=== PATIENT | male | born 1935 | race African-American/Black ===

== ENCOUNTER 2022-09-14 13:25 | Inpatient (IN) | payer OTHER ==
[~2022-09-14] VITALS: Ht 182.9 cm; Wt 75.4 kg
[2022-09-14] VITALS (22 sets, daily range): BP systolic 90–123; BP diastolic 52–84
[2022-09-14 14:49] LABS: BASOPHILS % 0.5 % (0.0-2.0); EOSINOPHILS % 0.4 % (0.0-5.0); HEMATOCRIT. 47.7 % (42.0-52.0); HEMOGLOBIN. 15.8 g/dL (14.0-18.0); LYMPHOCYTES % 14.8 % (20.0-50.0); MEAN CORPUSCULAR HEMOGLOBIN 31.8 pg (28.0-32.0); MEAN CORPUSCULAR VOLUME 95.7 fL (80.0-94.0); MEAN PLATELET VOLUME 8.6 fl (7.4-10.4); MONOCYTES % 5.6 % (2.0-8.0); NEUTROPHILS % 78.7 % (40.0-76.0); PLATELET 282 x1000/uL (130-400); RED BLOOD CELL COUNT 4.98 mill/uL (4.7-6.1); RED CELL DISTRIBUTION WIDTH 15.1 % (11.6-14.6)
[2022-09-14 14:51] LABS: CLARITY URINE CLEAR (CLEAR); COLOR URINE YELLOW (YELLOW); KETONES URINE 2+ (NEGATIVE); LEUKOCYTE ESTERASE URINE 2+ (NEGATIVE); NITRITE URINE POSITIVE (NEGATIVE); OCCULT BLOOD URINE TRACE (NEGATIVE); PH URINE 5.5 (4.5-8.0); PROTEIN URINE TRACE (NEGATIVE); SPECIFIC GRAVITY URINE 1.016 (1.005-1.030); UROBILINOGEN URINE 0.2 E.U./dL (0.2-1.0)
[2022-09-14 15:03] LABS: CHLORIDE 105 mEq/L (98-107)
[2022-09-14] MEDS ORDERED: CEFTRIAXONE 1 G PREMIX 50 ML IV ONE (16:15)
[2022-09-14] MEDS ORDERED: MORPHINE SULFATE 2 MG/ML CPJ (NOT FOR IM USE) IV PRN (18:00)
[2022-09-14] MEDS ORDERED: NICARDIPINE 100 MG in SODIUM CHLORIDE 0.9% 60 ML IV PRN (18:00)
[2022-09-14] MEDS ORDERED: IPRATROPIUM/ALBUTEROL 0.5-3(2.5)MG/3ML NEB NEB SCH (18:30)
[2022-09-14] MEDS ORDERED: ACETAMINOPHEN 650MG SUPP PR PRN ×2 (18:30)
[2022-09-14] MEDS ORDERED: ONDANSETRON HCL 4MG/2ML INJ IV PRN (18:30)
[2022-09-14] MEDS: DEXT 5%/LACTATED RINGERS 1,000 ML IV SCH (18:40)
[2022-09-14] MEDS: FUROSEMIDE 40MG/4ML VIAL IV SCH (18:55)
[2022-09-14] MEDS: PANTOPRAZOLE SODIUM 40 MG/VIAL IV SCH (18:55)
[2022-09-14] MEDS ORDERED: VANCOMYCIN 1G PREMIX 200 ML IV SCH (20:00)
[2022-09-14] MEDS: FOLIC ACID 1MG TABLET PO SCH (20:45)
[2022-09-14] MEDS ORDERED: LEVETIRACETAM 500MG PREMIX 100 ML IV SCH (21:00)
[2022-09-14 22:01] LABS: VITAMIN B12 SERUM >2000 pg/mL pg/mL (211-911)
[2022-09-14] MEDS: THIAMINE HCL 500 MG in SODIUM CHLORIDE 0.9% 95 ML IV SCH (22:08)
[2022-09-14] MEDS: PIPERACILLIN/TAZOBACTAM 3.375 G in DEXTROSE 5% WATER 50 ML IV SCH (22:09)
[2022-09-14 22:50] LABS: CREATINE KINASE MB FRACTION 2.3 ng/mL (0.5-3.6)
[2022-09-15] VITALS (76 sets, daily range): BP systolic 88–131; BP diastolic 36–82
[2022-09-15] MEDS ORDERED: VANCOMYCIN 750MG PREMIX 150 ML IV SCH (04:00)
[2022-09-15] MEDS: PIPERACILLIN/TAZOBACTAM 3.375 G in DEXTROSE 5% WATER 50 ML IV SCH ×2 (05:27→13:43)
[2022-09-15 06:54] LABS: BASOPHILS % 0.4 % (0.0-2.0); EOSINOPHILS % 0.8 % (0.0-5.0); HEMATOCRIT. 39.2 % (42.0-52.0); HEMOGLOBIN. 13.4 g/dL (14.0-18.0); LYMPHOCYTES % 13.1 % (20.0-50.0); MEAN CORPUSCULAR HEMOGLOBIN 31.8 pg (28.0-32.0); MEAN CORPUSCULAR VOLUME 93.4 fL (80.0-94.0); MONOCYTES % 9.7 % (2.0-8.0); RED CELL DISTRIBUTION WIDTH 14.3 % (11.6-14.6)
[2022-09-15 07:18] LABS: CHLORIDE 107 mEq/L (98-107)
[2022-09-15 07:34] LABS: CREATINE KINASE MB FRACTION 1.7 ng/mL (0.5-3.6)
[2022-09-15] MEDS: THIAMINE HCL 500 MG in SODIUM CHLORIDE 0.9% 95 ML IV SCH ×3 (08:47→19:11)
[2022-09-15] MEDS: FUROSEMIDE 40MG/4ML VIAL IV SCH (08:49)
[2022-09-15] MEDS: PANTOPRAZOLE SODIUM 40 MG/VIAL IV SCH (08:49)
[2022-09-15] MEDS: FOLIC ACID 1MG TABLET PO SCH (10:50)
[2022-09-15] MEDS: DEXT 5%/LACTATED RINGERS 1,000 ML IV SCH (10:53)
[2022-09-15] MEDS ORDERED: VANCOMYCIN 1G PREMIX 200 ML IV SCH (18:00)
== END 2022-09-15 21:50 | disposition short-term general hospital (02) | DRG 871 ==
LOC: ER 13:25 → MICUSO 16:25 → EDBEDREQSVC 16:27 → EDBEDREQ 16:29
PROVIDERS: ADMIT Internal Medicine; ATTEND Internal Medicine
DX: A41.9 Sepsis, unspecified organism (principal); E43 Unspecified severe protein-calorie malnutrition; I61.8 Other nontraumatic intracerebral hemorrhage; N39.0 Urinary tract infection, site not specified; N17.9 Acute kidney failure, unspecified; G82.20 Paraplegia, unspecified; Z66 Do not resuscitate; Z20.822 Contact with and (suspected) exposure to COVID-19; R62.7 Adult failure to thrive; Z68.22 Body mass index [BMI] 22.0-22.9, adult; J44.9 Chronic obstructive pulmonary disease, unspecified; N40.1 Benign prostatic hyperplasia with lower urinary tract symptoms; R79.89 Other specified abnormal findings of blood chemistry; I48.91 Unspecified atrial fibrillation; I10 Essential (primary) hypertension; Z74.01 Bed confinement status; Z87.442 Personal history of urinary calculi
CPT/HCPCS: 36415; 70544; 70553; 71045; 80053; 80061; 81003; 82550; 82553; 82607; 83036; 83605; 83880; 84145; 84439; 84443; 84481; 84484; 85025; 87426; 92610; 93005; 93306; 93970; 99291; A6261; C9113; J0696; J1940; J1953; J2543; J3370; J3411; J7050; J7060; J7121